=== PATIENT | male | born 1980 | race Caucasian/White ===

== ENCOUNTER 2017-07-02 22:11 | Emergency (ER) | payer MEDICAID ==
[~2017-07-02] VITALS: Ht 172.7 cm; Wt 80.9 kg
[~2017-07-02 22:11] MED LIST: LANTUS SUBQ
[2017-07-02 22:41] VITALS: BP 146/94
--- NOTE | 2017-07-03 00:53 | NUR ---
PT.BIB VIA W/C TO ER [facility]
--- NOTE | 2017-07-03 01:30 | NUR ---
37Y/M PT. PRESESNT TO ED WITH C/O LT. LEG PAIN . PAIN 9/10 LEFT LEG PAIN S/P FRACTURE ON 05/30/17, PT REPORTS SEEN IN [place], RX: NORCO. REPORTS HE NEEDS TO SEE ORTHO BUT HAS NOT BECAUSE OF WORKERS COMP LEG IN [place]PL[place], <3 SECS CAP REFILL . PMH: DM, RX: LANTUS AND HUMALOG. AAO X4, AMBULATORY WITH W/C ASSIST. VSS, ER MADE AWARE OF PT. STATUS.
--- NOTE | 2017-07-03 01:40 | NUR ---
Patient discharged with v/s stable. Written and verbal after care instructions given and explained. Patient alert, oriented and verbalized understanding of instructions. Ambulatory with steady gait. All questions addressed prior to discharge. ID band removed. Patient advised to follow up with PMD. Rx of NORCO 5/325 MG given. Patient educated on indication of medication including possible reaction and side effects. Opportunity to ask questions provided and answered.
[2017-07-03 01:49] VITALS: BP 150/89
== END 2017-07-03 01:40 | disposition home or self-care (01) ==
LOC: MED 22:11
DX: M79.605 Pain in left leg (principal); E11.9 Type 2 diabetes mellitus without complications; I10 Essential (primary) hypertension; Z88.1 Allergy status to other antibiotic agents
CPT/HCPCS: 99283

== ENCOUNTER 2022-11-12 12:08 | Emergency (ER) | payer BC, MEDICAID ==
[~2022-11-12] VITALS: Ht 175.3 cm; Wt 92.2 kg
[2022-11-12 12:16] VITALS: BP 146/86; PULSE 88; RESP 20; TEMP 97.5; O2SAT 95
[2022-11-12] MEDS ORDERED: SULF-58 PO (12:56)
[2022-11-12] MEDS ORDERED: BACTO TP (12:56)
[2022-11-12] MEDS ORDERED: SULFAMETH/TRIMETH 400/80MG 1 TAB PO ONE (13:00)
[2022-11-12] MEDS ORDERED: BACITRACIN OINT 500 UNITS/GM PKT TP ONE (13:00)
== END 2022-11-12 13:21 | disposition home or self-care (01) ==
LOC: MED 12:08
DX: S60.211A Contusion of right wrist, initial encounter (principal); L03.012 Cellulitis of left finger; E11.9 Type 2 diabetes mellitus without complications; I10 Essential (primary) hypertension; Z88.1 Allergy status to other antibiotic agents; Z79.899 Other long term (current) drug therapy; X58.XXXA Exposure to other specified factors, initial encounter; Y93.89 Activity, other specified; Y92.89 Other specified places as the place of occurrence of the external cause; Y99.8 Other external cause status
CPT/HCPCS: 73110; 99283

== ENCOUNTER 2023-11-03 05:18 | Emergency (ER) | payer BC, MEDICAID ==
[~2023-11-03] VITALS: Ht 172.7 cm; Wt 73.0 kg
[~2023-11-03 05:18] MED LIST changes: +BACTO TP; +SULF-58 PO
[2023-11-03 05:23] VITALS: BP 149/100; PULSE 84; RESP 14; TEMP 97.5; O2SAT 99
[2023-11-03] MEDS ORDERED: CLIN150C1 PO (06:44)
[2023-11-03] MEDS: CLINDAMYCIN 150 MG CAP PO ONE (06:49)
[2023-11-03] MEDS: BACITRACIN OINT 500 UNITS/GM PKT TP ONE (06:50)
== END 2023-11-03 07:06 | disposition home or self-care (01) ==
LOC: MED 05:18
DX: S81.811A Laceration without foreign body, right lower leg, initial encounter (principal); L08.89 Other specified local infections of the skin and subcutaneous tissue; E10.9 Type 1 diabetes mellitus without complications; I10 Essential (primary) hypertension; Z79.899 Other long term (current) drug therapy; Z88.0 Allergy status to penicillin; W18.2XXA Fall in (into) shower or empty bathtub, initial encounter; Y92.89 Other specified places as the place of occurrence of the external cause; Y93.89 Activity, other specified; Y99.8 Other external cause status
CPT/HCPCS: 99283